=== PATIENT | female | born 2000 | race Caucasian/White ===

== ENCOUNTER 2021-01-02 06:29 | Emergency (ER) | payer OTHER ==
[~2021-01-02] VITALS: Ht 165.1 cm; Wt 79.0 kg
== END 2021-01-02 09:43 | disposition home or self-care (01) ==
LOC: ED 06:29
DX: O21.0 Mild hyperemesis gravidarum (principal); Z3A.14 14 weeks gestation of pregnancy; Z87.891 Personal history of nicotine dependence
CPT/HCPCS: 80053; 81001; 83735; 85025; 96374; 99284-25; J2405; J7030; J7042

== ENCOUNTER 2021-05-14 08:45 | Emergency (ER) | payer OTHER ==
[~2021-05-14] VITALS: Ht 165.1 cm; Wt 88.0 kg
[2021-05-14] MEDS ORDERED: TYLOPHEN500 MG PO (09:04)
[2021-05-14] MEDS ORDERED: PENICILLIN V P500 MG PO (09:09)
== END 2021-05-14 09:20 | disposition home or self-care (01) ==
LOC: ED 08:45
DX: O99.613 Diseases of the digestive system complicating pregnancy, third trimester (principal); K08.89 Other specified disorders of teeth and supporting structures; Z3A.33 33 weeks gestation of pregnancy; Z87.891 Personal history of nicotine dependence
CPT/HCPCS: 99282

== ENCOUNTER 2021-06-26 05:57 | Inpatient (IN) | payer OTHER ==
[~2021-06-26 05:57] MED LIST: PENICILLIN V P500 MG PO; TYLOPHEN500 MG PO
[2021-06-26] MEDS ORDERED: PRILOSEC OTC20 MG PO (07:38)
--- NOTE | 2021-06-26 13:12 | PR ---
[facility] [address] [place], [place] [address] Signed Progress Notes IP Datetime Report Generated by CPN: 06/26/2021 13:12 PROGRESS NOTES: [id number] Procedures: Artificial ROM; Sterile Vag Exam Plan: Continue Present Management VITAL SIGNS: [id number] Vital Signs: Reviewed VS Notable Details: HTN--not severe range EXAM: [id number] Dilatation: 1.5 Effacement: 80 Station: -2 Contractions: irreg MEMBRANES: [id number] ROM Note: AROM by Dr. Contreras Comments: Progressing. Will continue. FETUS A: [id number] FHR Baseline: 125 Variability: Moderate 6-25bpm Accelerations: 15X15 Decelerations: None FHR Category: Category I Presentation: Vertex Comments on Fetus A: No evidence of metabolic acidosis FETUS B: [id number] Signing Physician: Tito Contreras MD Copies: ~ *Electronically Signed* 06/26/21 1312 TITO CONTRERAS MD PATIENT NAME: ANIYAHSINANENRIQUETASTEFFANIE CLEVELANDE PROGRESS NOTE DATE OF : 01 PHYSICIAN: ITTO CONTRERAS MD RPT #: [id number] REPORT IS CONFIDENTIAL AND NOT TO BE RELEASED WITHOUT AUTHORIZATION
--- NOTE | 2021-06-26 16:56 | PR ---
[facility] [address] [place], [place] [address] Signed Progress Notes IP Datetime Report Generated by JIMENA: 06/26/2021 16:56 PROGRESS NOTES: [id number] Impression: Normal Progression of Labor Procedures: Intrauterine Pressure Catheter; Scalp Electrode; Sterile Vag Exam Plan: Continue Present Management VITAL SIGNS: [id number] Vital Signs: Reviewed VS Notable Details: HTN--not severe range EXAM: [id number] Dilatation: 3.5 Effacement: 90 Station: -2 Contractions: irreg MEMBRANES: [id number] ROM Note: AROM by Dr. Contreras Comments: Progressing. Will need to continue close observation given the decels since her epidural. Her BP is stable so I do not feel this is the cause. Will continue position changes and give subQ terb now. May need to do amnioinfusion. FETUS A: [id number] FHR Baseline: 125 Variability: Moderate 6-25bpm Accelerations: 15X15 Decelerations: None FHR Category: Category I Presentation: Vertex Comments on Fetus A: No evidence of metabolic acidosis FETUS B: [id number] Signing Physician: Nury Contreras MD Copies: ~ *Electronically Signed* 06/26/21 4321 NURY CONTRERAS MD PATIENT NAME: ENRIQUETA DILL PROGRESS NOTE DATE OF : 01 PHYSICIAN: NURY CONTRERAS MD RPT #: [id number] REPORT IS CONFIDENTIAL AND NOT TO BE RELEASED WITHOUT AUTHORIZATION
--- NOTE | 2021-06-28 08:32 | PR ---
[facility] [address] [facility] [address] [place], [place] [address] Signed PP Progress Notes Datetime Report Generated by CPAmanda: 06/28/2021 08:32 SUBJECTIVE: [id number] Pain: Within Normal Limits Nausea/Vomiting: Denies Vital Signs: F1352515 Vital Signs: Reviewed Notable Details: occ mild elevation in BP EXAM: Ongoing Cardiovascular: Not Done Respiratory: Not Done Abdomen/Uterus: Abnormal Lochia: Normal Vulva/Perineum: Not Done Breasts: Not Done CVA Tenderness: Not Done Extremities: Normal Incision: Not Applicable Progress: Normal Exam Comments: Fundus firm, NT @ U-1 H/H 11.1/13.8, WBC 13.2, plat 304k IMPRESSION/PLAN/PROCEDURES: [id number] Impression: Normal Progression Plan: Discharge Procedures: None Progress Notes: Doing well. She would like D/C and this seems reasonable. Signing Physician: Nury Contreras MD Copies: ~ *Electronically Signed* 06/28/21 0832 NURY CONTRERAS MD PATIENT NAME: ENRIQUETA DILL PROGRESS NOTE DATE OF : 01 PHYSICIAN: NURY CONTRERAS MD RPT #: [id number] REPORT IS CONFIDENTIAL AND NOT TO BE RELEASED WITHOUT AUTHORIZATION
== END 2021-06-28 10:40 | disposition home or self-care (01) | DRG 807 ==
LOC: FBC 05:57
PROVIDERS: ADMIT Obstetrics & Gynecology; ATTEND Obstetrics & Gynecology
PROC: 10E0XZZ Delivery of Products of Conception, External Approach (ICD-10-PCS; principal; 2021-06-26)
PROC: 10H07YZ Insertion of Other Device into Products of Conception, Via Natural or Artificial Opening (ICD-10-PCS; 2021-06-26)
PROC: 10H073Z Insertion of Monitoring Electrode into Products of Conception, Via Natural or Artificial Opening (ICD-10-PCS; 2021-06-26)
PROC: 0HQ9XZZ Repair Perineum Skin, External Approach (ICD-10-PCS; 2021-06-26)
PROC: 10907ZC Drainage of Amniotic Fluid, Therapeutic from Products of Conception, Via Natural or Artificial Opening (ICD-10-PCS; 2021-06-26)
PROC: 3E0R3BZ Introduction of Anesthetic Agent into Spinal Canal, Percutaneous Approach (ICD-10-PCS; 2021-06-26)
PROC: 00HU33Z Insertion of Infusion Device into Spinal Canal, Percutaneous Approach (ICD-10-PCS; 2021-06-26)
PROC: 3E0P7VZ Introduction of Hormone into Female Reproductive, Via Natural or Artificial Opening (ICD-10-PCS; 2021-06-26)
DX: O14.04 Mild to moderate pre-eclampsia, complicating childbirth (principal); Z37.0 Single live birth; Z3A.38 38 weeks gestation of pregnancy; O70.0 First degree perineal laceration during delivery; Z20.822 Contact with and (suspected) exposure to COVID-19; O66.0 Obstructed labor due to shoulder dystocia; O99.324 Drug use complicating childbirth; O99.214 Obesity complicating childbirth; F12.90 Cannabis use, unspecified, uncomplicated; Z79.899 Other long term (current) drug therapy
CPT/HCPCS: 01960; 82565; 82570; 84156; 84450; 84520; 84550; 85027; A9270; C9803; J2405; J2765; J2795; J3010; J3105; J7121; U0003

== ENCOUNTER 2021-12-25 12:21 | Emergency (ER) | payer OTHER ==
[~2021-12-25] VITALS: Ht 165.1 cm; Wt 90.8 kg
[~2021-12-25 12:21] MED LIST changes: +PRILOSEC OTC20 MG PO
[2021-12-25] MEDS ORDERED: VISTARIL25 MG PO (12:41)
== END 2021-12-25 13:05 | disposition home or self-care (01) ==
LOC: ED 12:21
DX: B09 Unspecified viral infection characterized by skin and mucous membrane lesions (principal); Z87.891 Personal history of nicotine dependence; Z88.8 Allergy status to other drugs, medicaments and biological substances; Z79.899 Other long term (current) drug therapy; Z20.822 Contact with and (suspected) exposure to COVID-19
CPT/HCPCS: 99283; U0003

== ENCOUNTER 2023-01-08 06:58 | Emergency (ER) | payer OTHER ==
[~2023-01-08] VITALS: Ht 165.1 cm; Wt 90.8 kg
[~2023-01-08 06:58] MED LIST changes: +VISTARIL25 MG PO
[2023-01-08] MEDS ORDERED: ASPIRIN81 MG (07:16)
[2023-01-08] MEDS ORDERED: PRENATABS FA T1 EACH PO (07:16)
[2023-01-08] MEDS ORDERED: ONDANSETRON ODT4 MG PO (07:43)
[2023-01-08] MEDS ORDERED: PROTONIX40 MG PO (08:17)
== END 2023-01-08 08:29 | disposition home or self-care (01) ==
LOC: ED 06:58
DX: O21.0 Mild hyperemesis gravidarum (principal); Z3A.17 17 weeks gestation of pregnancy; Z87.891 Personal history of nicotine dependence
CPT/HCPCS: 36415; 80053; 83690; 85025; 96361; 96374; 96376; 99284-25; J2405; J7030

== ENCOUNTER 2023-06-17 05:58 | Inpatient (IN) | payer OTHER ==
[~2023-06-17] VITALS: Ht 165.1 cm; Wt 90.7 kg
--- OUTSIDE RECORDS SUMMARY | ~2023-06-17 | XMS | Continuity of Care Document ---
Demographics + + + | Address | [address] | | | [place] [address] | + + + | Preferred Language | Unknown | + + + | Marital Status | Never | + + + | Episcopalian Affiliation | Unknown | + + + | Race | White | + + + | Ethnic Group | Not or | + + + Author + + + | Author | [facility] | + + + | Organization | [facility] | + + + | Address | [address] | | | [place] [address] | + + + | Phone | | + + + Care Team Providers + + + + | Care Rn On Site Name | Role | Phone | + + + + Unavailable | Unavailable | + + + + Unavailable | Unavailable | + + + + Allergies and Intolerances + + + + + + | date | description | facility | reaction | severity | + + + + + + | (no date) | No Known Drug | [facility] | (no reaction) | (no severity) | | | Allergies | | | | + + + + + + Encounters No information. Functional Status No information. Immunizations No information. Medications + + + + | | description | facility | + + + + | 2023-01-08 00:00 | ONDANSETRON | [facility] | + + + + | 2023-01-08 00:00 | ACETAMINOPHEN | [facility] | + + + + | 2023-01-08 00:00 | PANTOPRAZOLE SODIUM | [facility] | + + + + | 2023-01-08 00:00 | ASPIRIN | [facility] | + + + + | 2023-01-08 00:00 | OMEPRAZOLE MAGNESIUM | [facility] | + + + + | 2021-05-14 00:00 | PENICILLIN V POTASSIUM | [facility] | + + + + | 2021-12-25 00:00 | HYDROXYZINE PAMOATE | [facility] | + + + + Problems + + + + | date | description | facility | + + + + | 2021-01-02 00:00 | Hyperemesis gravidarum | [facility] | + + + + | 2021-05-14 00:00 | Toothache | [facility] | + + + + | 2021-12-25 00:00 | Viral exanthem | [facility] | + + + + | 2022-11-06 07:57 | THREATENED | [facility] | + + + + | 2022-11-06 07:57 | ENCOUNTER FOR | [facility] | | | SCREENING FOR UN | | + + + + | 2023-01-08 06:59 | MILD HYPEREMESIS | [facility] | | | GRAVIDARUM | | + + + + | 2023-01-08 06:59 | 17 WEEKS GESTATION OF | [facility] | | | | | + + + + | 2023-01-08 06:59 | PERSONAL HISTORY OF | [facility] | | | NICOTINE DEPENDENCE | | + + + + | 2023-02-06 19:13 | MATERNAL CARE FOR BREECH | [facility] | | | PRESENTATION, UNSP | | + + + + | 2023-02-06 19:13 | ENCOUNTER FOR SUPRVSN OF | [facility] | | | NORMAL , SECOND | | | | TRIMESTER | | + + + + | 2023-02-06 19:13 | 21 WEEKS GESTATION OF | [facility] | | | | | + + + + | 2023-05-26 05:08 | NAUSEA WITH VOMITING, | [facility] | | | UNSPECIFIED | | + + + + | 2023-05-26 05:08 | UNSPECIFIED FALL, INITIAL | [facility] | | | ENCOUNTER | | + + + + Procedures No information. Results/Labs +--------+--------+ +---------+--------+---------+ | test | date | facility | value | unit | notes | +--------+--------+ +---------+--------+---------+ + + | Result panel 1 | + + + + + +--------+ + + | | 2023-01-08 | [facility] | 17.3 | (missing) | (missing) | | (unavailable | 07[facility]15:07 [facility] | | | | + + + +--------+ + + + + | Result panel 2 | + + + + + +------+ + + | | 2023-01-08 | [facility] | 78 | (missing) | (missing) | | (unavailable | 07:15:07 [facility] | | | | + + + +------+ + + + + | Result panel 3 | + + + + + +------+ + + | | 2023-01-08 | [facility] | 19 | (missing) | (missing) | | (unavailable | 07[facility]15:07 [facility] | | | | + + + +------+ + + + + | Result panel 4 | + + + + + +-----+ + + | | 2023-01-08 | [facility] | 3 | (missing) | (missing) | | (unavailable | 07[facility]15:07 [facility] | | | | + + + +-----+ + + + + | Result panel 5 | + + + + + +-------+---------+ + | | 2023-01-08 | [facility] | 124 | mg/dL | (missing) | | (unavailable | 07[facility]15:07 [facility] | | | | + + + +-------+---------+ + + + | Result panel 6 | + + + + + +-----+---------+ + | | 2023-01-08 | [facility] | 9 | mg/dL | (missing) | | (unavailable | 07[facility]15:07 [facility] | | | | + + + +-----+---------+ + + + | Result panel 7 | + + + + + +--------+---------+ + | | 2023-01-08 | [facility] | 0.65 | mg/dL | (missing) | | (unavailable | 07[facility]15:07 [facility] | | | | + + + +--------+---------+ + + + | Result panel 8 | + + + + + +-------+ + + | | 2023-01-08 | [facility] | 128 | (missing) | (missing) | | (unavailable | 07[facility]15:07 [facility] | | | | + + + +-------+ + + + + | Result panel 9 | + + + + + +---------+ + + | | 2023-01-08 | [facility] | 13.84 | (missing) | (missing) | | (unavailable | [facility]15:07 [facility] | | | | + + + +---------+ + + + + | Result panel 10 | + + + + + +-------+ + + | | 2023-01-08 | [facility] | 140 | (missing) | (missing) | | (unavailable | [facility]15:07 [facility] | | | | + + + +-------+ + + + + | Result panel 11 | + + + + + +-------+ + + | | 2023-01-08 | [facility] | 3.3 | (missing) | (missing) | | (unavailable | [facility]15:07 [facility] | | | | + + + +-------+ + + + + | Result panel 12 | + + + + + +--------+ + + | | 2023-01-08 | [facility] | 4.67 | (missing) | (missing) | | (unavailable | 07[facility]15:07 [facility] | | | | + + + +--------+ + + + + | Result panel 13 | + + + + + +-------+ + + | | 2023-01-08 | [facility] | 102 | (missing) | (missing) | | (unavailable | 07[facility]15:07 [facility] | | | | + + + +-------+ + + + + | Result panel 14 | + + + + + +------+ + + | | 2023-01-08 | [facility] | 23 | (missing) | (missing) | | (unavailable | 07[facility]15:07 [facility] | | | | + + + +------+ + + + + | Result panel 15 | + + + + + +--------+ + + | | 2023-01-08 | [facility] | 18.3 | (missing) | (missing) | | (unavailable | 07[facility]15:07 [facility] | | | | + + + +--------+ + + + + | Result panel 16 | + + + + + +-------+---------+ + | | 2023-01-08 | [facility] | 9.3 | mg/dL | (missing) | | (unavailable | 07:15:07 [facility] | | | | + + + +-------+---------+ + + + | Result panel 17 | + + + + + +-------+ + + | | 2023-01-08 | [facility] | 8.1 | (missing) | (missing) | | (unavailable | 07[facility]15:07 [facility] | | | | + + + +-------+ + + + + | Result panel 18 | + + + + + +-------+ + + | | 2023-01-08 | [facility] | 3.7 | (missing) | (missing) | | (unavailable | 07[facility]15:07 [facility] | | | | + + + +-------+ + + + + | Result panel 19 | + + + + + +-------+ + + | | 2023-01-08 | [facility] | 4.4 | (missing) | (missing) | | (unavailable | 07[facility]15:07 [facility] | | | | + + + +-------+ + + + + | Result panel 20 | + + + + + +--------+ + + | | 2023-01-08 | [facility] | 0.84 | (missing) | (missing) | | (unavailable | 07[facility]15:07 [facility] | | | | + + + +--------+ + + + + | Result panel 21 | + + + + + +-------+ + + | | 2023-01-08 | [facility] | 0.2 | (missing) | (missing) | | (unavailable | 07[facility]15:07 [facility] | | | | + + + +-------+ + + + + | Result panel 22 | + + + + + +------+ + + | | 2023-01-08 | [facility] | 16 | (missing) | (missing) | | (unavailable | 07[facility]15:07 [facility] | | | | + + + +------+ + + + + | Result panel 23 | + + + + + +--------+ + + | | 2023-01-08 | [facility] | 13.8 | (missing) | (missing) | | (unavailable | 07[facility]15:07 [facility] | | | | + + + +--------+ + + + + | Result panel 24 | + + + + + +------+ + + | | 2023-01-08 | [facility] | 16 | (missing) | (missing) | | (unavailable | 07[facility]15:07 [facility] | | | | + + + +------+ + + + + | Result panel 25 | + + + + + +------+ + + | | 2023-01-08 | [facility] | 64 | (missing) | (missing) | | (unavailable | 07[facility]15:07 [facility] | | | | + + + +------+ + + + + | Result panel 26 | + + + + + +------+ + + | | 2023-01-08 | [facility] | 75 | (missing) | (missing) | | (unavailable | 07[facility]15:07 [facility] | | | | + + + +------+ + + + + | Result panel 27 | + + + + + +--------+ + + | | 2023-01-08 | [facility] | 40.4 | (missing) | (missing) | | (unavailable | 07[facility]15:07 [facility] | | | | + + + +--------+ + + + + | Result panel 28 | + + + + + +--------+ + + | | 2023-01-08 | [facility] | 86.6 | (missing) | (missing) | | (unavailable | 07[facility]15:07 [facility] | | | | + + + +--------+ + + + + | Result panel 29 | + + + + + +--------+ + + | | 2023-01-08 | [facility] | 29.5 | (missing) | (missing) | | (unavailable | 07[facility]15:07 [facility] | | | | + + + +--------+ + + + + | Result panel 30 | + + + + + +--------+ + + | | 2023-01-08 | [facility] | 34.1 | (missing) | (missing) | | (unavailable | 07[facility]15:07 [facility] | | | | + + + +--------+ + + + + | Result panel 31 | + + + + + +--------+ + + | | 2023-01-08 | [facility] | 13.8 | (missing) | (missing) | | (unavailable | 07[facility]15:07 [facility] | | | | + + + +--------+ + + + + | Result panel 32 | + + + + + +-------+ + + | | 2023-01-08 | [facility] | 342 | (missing) | (missing) | | (unavailable | 07[facility]15:07 [facility] | | | | + + + +-------+ + + Social History No information. Vital Signs + + + +---------+ | date | measurement | value | units | + + + +---------+ | 2023-01-08 00:00 | BMI | 33.3 | kg/m2 | + + + +---------+ | 2023-01-08 00:00 | BP_diastolic | 50 | mmHg | + + + +---------+ | 2023-01-08 00:00 | BP_systolic | 115 | mmHg | + + + +---------+ | 2023-01-08 00:00 | heart_rate | 74 | /min | + + + +---------+ | 2023-01-08 00:00 | height_metric | 165.1 | cm | + + + +---------+ | 2023-01-08 00:00 | height_standard | 65 | in | + + + +---------+ | 2023-01-08 00:00 | o2_saturation | 98 | % | + + + +---------+ | 2023-01-08 00:00 | respiration_rate | 16 | /min | + + + +---------+ | 2023-01-08 00:00 | temperature_metric | 36.61 | C | | | | | | + + + +---------+ | 2023-01-08 00:00 | | 97.9 | F | | | temperature_standar | | | | | d | | | + + + +---------+ | 2023-01-08 00:00 | weight_metric | 90.78 | kg | + + + +---------+ | 2023-01-08 00:00 | weight_standard | 200.13 | lb | + + + +---------+ | 2023-01-08 00:00 | weight_standard | 200.14 | lb | + + + +---------+"
[~2023-06-17 05:58] MED LIST changes: +ASPIRIN81 MG; +ONDANSETRON ODT4 MG PO; +PRENATABS FA T1 EACH PO; +PROTONIX40 MG PO
[2023-06-17 06:19] LABS: AMPHETAMINES, UR NEGATIVE (NEGATIVE); BARBITURATES, UR NEGATIVE (NEGATIVE); BENZODIAZEPINES, UR NEGATIVE (NEGATIVE); BUPRENORPHINE,UR NEGATIVE (NEGATIVE); COCAINE, UR NEGATIVE (NEGATIVE); MARIJUANA (THC), UR POSITIVE (NEGATIVE); MDMA, UR NEGATIVE (NEGATIVE); METHADONE, UR NEGATIVE (NEGATIVE); METHAMPHETAMINE, UR NEGATIVE (NEGATIVE); OPIATES, UR NEGATIVE (NEGATIVE); OXYCODONE, UR NEGATIVE (NEGATIVE); PHENCYCLIDINE, UR NEGATIVE (NEGATIVE); TRICYCLIC ANTIDEPRESSANT, UR NEGATIVE (NEGATIVE)
[2023-06-17 06:36] VITALS: BP 139/87
[2023-06-17 06:40] LABS: HEMATOCRIT 34.5 % (35.0-50.0); HEMOGLOBIN 11.3 g/dL (12.0-18.0); MCHC 32.9 g/dl (30-36); RBC 4.06 M/ul (4.3-5.7); RDW 14.3 (10.5-15.0)
[2023-06-17 07:18] LABS: ABO O; RH POSITIVE
[2023-06-17 07:19] LABS: ANTIBODY SCREEN NEGATIVE
--- NOTE | 2023-06-17 13:04 | PR ---
[facility] [address] [facility] [place], [place] [address] Signed Progress Notes IP Datetime Report Generated by CPN: 06/17/2023 13:04 PROGRESS NOTES: [id number] Impression: Reassuring Heart Rate Procedures: Artificial ROM; Sterile Vag Exam Plan: Continue Present Management VITAL SIGNS: [id number] Vital Signs: Reviewed; Within Normal Limits EXAM: [id number] Dilatation: 3.5 Effacement: 75 Station: -2 Contractions: irregular MEMBRANES: [id number] Comments: Getting more uncomfortable and progressing. Will continue. FETUS A: [id number] FHR Baseline: 135 Variability: Moderate 6-25bpm Accelerations: 15X15 Decelerations: None FHR Category: Category I Presentation: Vertex Comments on Fetus A: no evidence of metabolic acidosis FETUS B: [id number] Signing Physician: Nury Contreras MD Copies: ~ *Electronically Signed* 06/17/23 1304 NURY CONTRERAS MD PATIENT NAME: ENRIQUETA DILL PROGRESS NOTE DATE OF : 01 PHYSICIAN: NURY CONTRERAS MD RPT #: [id number] REPORT IS CONFIDENTIAL AND NOT TO BE RELEASED WITHOUT AUTHORIZATION
[2023-06-18 05:46] LABS: HEMATOCRIT 32.2 % (35.0-50.0); HEMOGLOBIN 10.7 g/dL (12.0-18.0); MCH 28.2 (27-36); MCHC 33.2 g/dl (30-36); RBC 3.78 M/ul (4.3-5.7); RDW 14.4 (10.5-15.0)
--- NOTE | 2023-06-18 07:46 | PR ---
[facility] [address] [place], [place] [address] Signed PP Progress Notes Datetime Report Generated by CPAmanda: 06/18/2023 07:46 SUBJECTIVE: [id number] Pain: Within Normal Limits Vital Signs: [id number] Vital Signs: Reviewed; Within Normal Limits Cardiovascular: Not Done Respiratory: Not Done Abdomen/Uterus: Abnormal Lochia: Normal Vulva/Perineum: Not Done Breasts: Not Done CVA Tenderness: Not Done Extremities: Normal Incision: Not Applicable Progress: Abnormal Exam Comments: Fundus firm, NT @ U-1. H/H 10.7/32.2, WBC 14.4, plat 309k IMPRESSION/PLAN/PROCEDURES: [id number] Impression: Normal Progression Plan: Discharge Procedures: None Progress Notes: Doing well. She desires D/C today. Signing Physician: Nury Contreras MD Copies: ~ *Electronically Signed* 06/18/23 0746 NURY CONTRERAS MD PATIENT NAME: ENRIQUETA DILL PROGRESS NOTE DATE OF : 01 PHYSICIAN: NURY CONTRERAS MD RPT #: [id number] REPORT IS CONFIDENTIAL AND NOT TO BE RELEASED WITHOUT AUTHORIZATION
--- NOTE | 2023-06-18 10:40 | NUR ---
MOM IN CHAIR NURSING BABY. DAD ON COUCH NEARBY. BOTH LOOKING FORWARD TO GOING HOME LATER TODAY. CONSENTED TO PRAYER. PRAYED FOR GOOD BEGINNINGS AND ONGOING BLESSING.
== END 2023-06-18 20:35 | disposition home or self-care (01) | DRG 806 ==
LOC: FBC 05:58
PROVIDERS: ADMIT Obstetrics & Gynecology; ATTEND Obstetrics & Gynecology
PROC: 10E0XZZ Delivery of Products of Conception, External Approach (ICD-10-PCS; principal; 2023-06-17)
PROC: 10907ZC Drainage of Amniotic Fluid, Therapeutic from Products of Conception, Via Natural or Artificial Opening (ICD-10-PCS; 2023-06-17)
PROC: 3E0R3BZ Introduction of Anesthetic Agent into Spinal Canal, Percutaneous Approach (ICD-10-PCS; 2023-06-17)
PROC: 00HU33Z Insertion of Infusion Device into Spinal Canal, Percutaneous Approach (ICD-10-PCS; 2023-06-17)
DX: O48.0 Post-term pregnancy (principal); O99.324 Drug use complicating childbirth; Z37.0 Single live birth; O76 Abnormality in fetal heart rate and rhythm complicating labor and delivery; O69.1XX0 Labor and delivery complicated by cord around neck, with compression, not applicable or unspecified; F12.10 Cannabis abuse, uncomplicated; Z3A.40 40 weeks gestation of pregnancy; Z87.891 Personal history of nicotine dependence
CPT/HCPCS: 36415; 85027; 86850; 86900; 86901; A9270; J2590; J2795; J7121

== ENCOUNTER 2025-08-09 11:57 | Inpatient (IN) | payer OTHER ==
[~2025-08-09] VITALS: Ht 172.7 cm; Wt 87.5 kg
[2025-08-10] MEDS ORDERED: LACTATED RINGER'S 1,000 ML IV PRN (06:15)
[2025-08-10] MEDS ORDERED: LACTATED RINGER'S 1,000 ML IV SCH (06:15)
[2025-08-10] MEDS ORDERED: MAGNESIUM HYDROXIDE/AL HYDROX 30 ML CUP PO PRN (06:15)
[2025-08-10] MEDS ORDERED: OXYTOCIN/0.9 % SODIUM CHLORIDE 30 UNITS/500 ML BAG IV SCH (06:15)
[2025-08-10] MEDS ORDERED: CALCIUM CARBONATE 500 MG CHEW PO PRN (06:15)
[2025-08-10] MEDS ORDERED: TERBUTALINE SULFATE 1 MG/ML AMP SUB-Q PRN (06:15)
[2025-08-10] MEDS ORDERED: LIDOCAINE HCL 1% 30 ML SDV INJ PRN (06:15)
[2025-08-10 06:35] LABS: MCH 30.5 PG (25.6-32.2); MCHC 33.9 g/dL (32.2-35.5); MCV 89.8 fL (79.4-94.8); RBC 4.3 M/uL (3.93-5.22)
[2025-08-10 06:56] LABS: AMPHETAMINES, URINE NEGATIVE (NEGATIVE); BARBITURATES, URINE NEGATIVE (NEGATIVE); BENZODIAZEPINE, URINE NEGATIVE (NEGATIVE); CANNABINOID, URINE POSITIVE (NEGATIVE); COCAINE, URINE NEGATIVE (NEGATIVE); ECSTASY, URINE NEGATIVE (NEGATIVE); FENTANYL, URINE NEGATIVE (NEGATIVE); METHADONE, URINE NEGATIVE (NEGATIVE); OPIATES, URINE NEGATIVE (NEGATIVE); OXYCODONE, URINE NEGATIVE (NEGATIVE); PHENCYCLIDINE, URINE NEGATIVE (NEGATIVE)
[2025-08-10 07:08] VITALS: BP 127/84
[2025-08-10 07:10] LABS: ABO O; ANTIBODY SCREEN NEGATIVE; RH POSITIVE
[2025-08-10 07:25] LABS: INFLUENZA B NAA NEGATIVE (NEGATIVE); RESPIRATORY SYNCYTIAL VIR NAA NEGATIVE (NEGATIVE)
[2025-08-10] MEDS ORDERED: ACETAMINOPHEN 500 MG TAB PO ONE (13:15)
[2025-08-10 14:39] LABS: ALT (SGPT) 16.0 U/L (14-59); AST (SGOT) 16.0 U/L (15-37); GLOMERULAR FILTRATION RATE,EST 139.0 mL/min (>60); LACTATE DEHYDROGENASE 165.0 U/L (81-234); PROTEIN, TOTAL 6.6 g/dL (6.4-8.2); UREA NITROGEN 5.0 mg/dL (7-18)
[2025-08-10 14:54] LABS: PROTEIN, RANDOM URINE <6 mg/dL (NOT ESTABLISHED)
[2025-08-10] MEDS ORDERED: ROPIVACAINE 0.2% 200 ML BAG ONE (18:44)
[2025-08-10] MEDS ORDERED: ePHEDrine sulfate 5 MG/ML SYRINGE IV PRN (19:30)
[2025-08-10] MEDS ORDERED: ROPIVACAINE 0.2% 200 ML BAG EPIDURAL SCH (19:30)
[2025-08-10] MEDS ORDERED: LACTATED RINGER'S 2,000 ML IV ONE (19:30)
[2025-08-10] MEDS ORDERED: LACTATED RINGER'S 500 ML IV PRN (19:30)
[2025-08-11] MEDS ORDERED: LIDOCAINE 2% VISCOUS 6 ML SYR TOP ONE ×2 (00:30)
[2025-08-11] MEDS ORDERED: MAGNESIUM HYDROXIDE 30 ML UDC PO PRN (00:30)
[2025-08-11] MEDS ORDERED: ACETAMINOPHEN 325 MG TAB PO PRN (00:30)
[2025-08-11] MEDS ORDERED: IBUPROFEN 600 MG TAB PO PRN (00:30)
[2025-08-11] MEDS ORDERED: MAGNESIUM HYDROXIDE/AL HYDROX 30 ML CUP PO PRN (00:30)
[2025-08-11] MEDS ORDERED: OXYTOCIN/0.9 % SODIUM CHLORIDE 500 ML IV SCH (00:30)
[2025-08-11] MEDS ORDERED: BENZOCAINE 60 ML AEROSOL TOP PRN (00:30)
[2025-08-11] MEDS ORDERED: WITCH HAZEL/GLYCERIN 1 EA PAD TOP PRN (00:30)
[2025-08-11] MEDS ORDERED: HYDROCORTISONE ACETATE 25 MG SUPP PR PRN (00:30)
[2025-08-11] MEDS ORDERED: CALCIUM CARBONATE 500 MG CHEW PO PRN (00:30)
[2025-08-11] MEDS ORDERED: SENNOSIDES/DOCUSATE 1 EA TAB PO SCH (09:00)
== END 2025-08-12 09:05 | disposition home or self-care (01) | DRG 807 ==
LOC: FBC 08-10 05:45
PROVIDERS: Advanced Practice Midwife; ADMIT Student in an Organized Health Care Education/Training Program; ATTEND Student in an Organized Health Care Education/Training Program
PROC: 10E0XZZ Delivery of Products of Conception, External Approach (ICD-10-PCS; principal; 2025-08-10)
PROC: 3E0R3BZ Introduction of Anesthetic Agent into Spinal Canal, Percutaneous Approach (ICD-10-PCS; 2025-08-10)
PROC: 00HU33Z Insertion of Infusion Device into Spinal Canal, Percutaneous Approach (ICD-10-PCS; 2025-08-10)
DX: O99.324 Drug use complicating childbirth (principal); Z37.0 Single live birth; F12.90 Cannabis use, unspecified, uncomplicated; Z3A.39 39 weeks gestation of pregnancy
CPT/HCPCS: 36415; 80053; 80307; 82565; 82570; 83615; 84156; 84550; 85027; 86850; 86900; 86901; 87502; A9270; J2405; J2795; J7121; U0002